=== PATIENT | male | born 1965 | race Caucasian/White ===

== ENCOUNTER 2025-01-10 15:38 | Outpatient (CLI) | payer OTHER, SELFPAY | END 2025-01-10 15:39 | disposition home or self-care (01) | LOC: SLEEP 15:43 | PROVIDERS: Family Provider Family Medicine; PCP Family Medicine; Referring Provider Family Medicine; Visit Provider Internal Medicine Pulmonary Disease | DX: G47.33 Obstructive sleep apnea (adult) (pediatric) (principal); G47.36 Sleep related hypoventilation in conditions classified elsewhere | CPT/HCPCS: G0399 ==